=== PATIENT | female | born 1990 ===

== ENCOUNTER 2021-06-13 08:54 | Emergency (ER) | payer MEDICAID ==
--- NOTE | 2021-06-13 13:07 | Ultrasound Report ---
FIRSTTRIMESTER OBSTETRIC ULTRASOUND HISTORY: Vaginal bleeding during COMPARISON: None. TECHNIQUE: Routine transabdominal and transvaginal OB ultrasound performed. FINDINGS: Uterus: Mildly enlarged measuring 10.7 x 4.7 x 4.5 cm. 1 or 2 small uterine fibroids measuring up t o 1.5 cm are identified. Gestational Sac: Not seen Yolk Sac: Not seen Fetus/Embryo: Not seen Embryonic/ cardiac activity: Seen Endometrium: The endometrium measures 11 mm on transvaginal imaging and appears homogeneous. No hyper emia, fluid or obvious retained products. Ovaries: The right ovary is normal in size and appearance with normal blood flow, measuring 4.9 x 1. 1 x 5.6 cm. The left ovary is normal in size and appearance with normal blood flow, measuring 3.4 x 2.3 x 3.8 cm. No adnexal cyst or mass is identified. Additional findings: No pelvic fluid. IMPRESSION No intrauterine is demonstrated. The endometrium measures 11 mm and appears homogeneous. Th e ovaries are unremarkable. This may represent spontaneous . Please note that an ectopic preg citlali is not entirely excluded at this time. A very early nonvisualized could also be consi dered. Please correlate with the patient's clinical history and quantitative beta hCG levels. Signer Name: Abhijeet Esposito Jr, MD Signed: 06/13/2021 1:03 PM Workstation Name: [id number]
[2021-06-13 13:57] LABS: Hematocrit 40.9 % (30.3-42.9); Hemoglobin 13.2 gm/dl (10.1-14.3); Mean Corpuscular HGB Conc 32 % (30-34); Mean Corpuscular Volume 96 fl (79-97); Platelet Count 266 K/mm3 (140-440); Red Blood Count 4.27 M/mm3 (3.65-5.03); Red Cell Distribution Width 14.3 % (13.2-15.2)
[2021-06-13 14:17] LABS: Alanine Aminotransferase 7 units/L (7-56); Albumin 4.3 g/dL (3.9-5); Blood Urea Nitrogen 7 mg/dL (7-17); Calcium 9.5 mg/dL (8.4-10.2); Hemolysis Index 8
[2021-06-13 14:18] LABS: BUN/Creatinine Ratio 12
[2021-06-13 15:20] LABS: Calcium Phosphate Crystals,Ur 3+; Mucus,Urine FEW /HPF
[2021-06-13 15:39] LABS: RBC,Urine > 182.0 /HPF (0.0-6.0)
[2021-06-13 15:44] LABS: Color,Urine Yellow (Yellow)
[2021-06-13 15:45] LABS: Bilirubin,Urine Negative (Negative); Blood,Urine 3+ (Negative)
--- NOTE | 2021-06-13 15:51 | Emergency Department Report ---
ED Female HPI - General Chief complaint: Vaginal Bleeding Stated complaint: POSSIBLE MISCARRIAGE Time Seen by Provider: 06/13/21 11:29 Source: patient Mode of arrival: Ambulatory Limitations: No Limitations - History of Present Illness Initial comments: 30 yof who states that she is about 8- 10 weeks gestation with LMP She states that she noticed some vaginal spotting along with abdominal cramping. She denies dysuria, fever, and vaginal discharge. MD Complaint: vaginal bleeding -: Sudden Severity: mild Severity scale (0 -10): 3 Quality: cramping Consistency: constant Are you Now?: Yes Last Menstrual Period: 04/09/21 EDC: 01/14/22 Associated Symptoms: vaginal bleeding, abdominal pain. denies: vaginal discharge, nausea/vomiting, fever/chills, headaches, loss of appetite, dysuria, hematuria, rash, shortness of breath, syncope, weakness - Related Data Sexually active: Yes : 3 Para: 1 Allergies Allergy/AdvReac Type Severity Reaction Status Date / Time No Known Allergies Allergy Verified 06/13/21 09:01 ED Review of Systems ROS: Stated complaint: POSSIBLE MISCARRIAGE Other details as noted in HPI Comment: All other systems reviewed and negative Constitutional: denies: chills, diaphoresis, fever, malaise, weakness Eyes: denies: eye pain, eye discharge ENT: denies: ear pain, throat pain, congestion Respiratory: SOB at rest. denies: cough, orthopnea, shortness of breath, SOB with exertion Cardiovascular: denies: chest pain, palpitations, dyspnea on exertion, orthopnea, edema, syncope, paroxysmal nocturnal dyspnea Endocrine: no symptoms reported Gastrointestinal: abdominal pain. denies: nausea, vomiting, diarrhea, hematemesis, melena, hematochezia Genitourinary: denies: urgency, dysuria, frequency, hematuria, discharge Skin: denies: rash, lesions Neurological: denies: headache, weakness, numbness, paresthesias Psychiatric: denies: anxiety, depression Hematological/Lymphatic: denies: easy bleeding, easy bruising ED Past Medical Hx - Past Medical History Previous Medical History?: No - Surgical History Past Surgical History?: No ED Physical Exam - General Limitations: No Limitations General appearance: alert, in no apparent distress - Head Head exam: Present: atraumatic, normocephalic - Eye Eye exam: Present: normal appearance, conjunctival injection - Neck Neck exam: Present: normal inspection. Absent: tenderness, lymphadenopathy - Respiratory Respiratory exam: Present: normal lung sounds bilaterally. Absent: respiratory distress, wheezes, rhonchi, stridor, chest wall tenderness - Cardiovascular Cardiovascular Exam: Present: tachycardia, normal heart sounds - GI/Abdominal GI/Abdominal exam: Present: soft, normal bowel sounds. Absent: distended, tenderness, guarding, rebound, rigid - Extremities Exam Extremities exam: Present: normal inspection - Back Exam Back exam: Present: normal inspection. Absent: CVA tenderness (R), CVA tenderness (L), vertebral tenderness - Neurological Exam Neurological exam: Present: alert, oriented X3 - Psychiatric Psychiatric exam: Present: normal affect, normal mood - Skin Skin exam: Present: warm, dry, intact, normal color ED Course Vital Signs 06/13/21 06/13/21 09:02 16:01 Temperature 99.2 F Pulse Rate 115 H 86 Respiratory 16 18 Rate Blood Pressure 124/92 123/81 O2 Sat by Pulse 100 100 Oximetry ED Medical Decision Making - Lab Data Result diagrams: 06/13/21 13:20 06/13/21 13:20 - Radiology Data Radiology results: report reviewed OB US IMPRESSION No intrauterine is demonstrated. The endometrium measures 11 mm and appears homogeneous. The ovaries are unremarkable. This may represent spontaneous . Please note that an ectopic is not entirely excluded at this time. A very early nonvisualized could also be considered. Please correlate with the patient's clinical history and quantitative beta hCG levels. - Medical Decision Making 30 yof who states that she is about 8- 10 weeks gestation with LMP She states that she noticed some vaginal spotting along with abdominal cramping. She denies dysuria, fever, and vaginal discharge. Patient noted to have negative test and no IUP noted on US. UA negative for UTI. Patient was advised to that she could have possibly had a false positive test and this is a menstrual cycle given the low HCG level. She was advised to follow up with second officer for further evaluation. She verbalized understanding of and agreement with plan of care. Critical care attestation.: If time is entered above; I have spent that time in minutes in the direct care of this critically ill patient, excluding procedure time. ED Disposition Clinical Impression: Vaginal bleeding Disposition: HOME / SELF CARE / HOMELESS Is pt being admited?: No Does the pt Need Aspirin: No Condition: Stable Instructions: Miscarriage, [id number], Vaginal Bleeding During , First Trimester, [id number] Additional Instructions: Follow-up with [facility] for further evaluation. Referrals: VIANNEY FROST MD [Primary Care Provider] - 3-5 Days ZOE LEE MD [Referring] - 3-5 Days Time of Disposition: 15:50
[2021-06-13 17:22] VITALS: BP 123/81
== END 2021-06-13 16:03 | disposition home or self-care (01) ==
LOC: ED 08:54
DX: O20.9 Hemorrhage in early pregnancy, unspecified (principal); Z3A.08 8 weeks gestation of pregnancy
CPT/HCPCS: 36415; 76801; 76817; 80053; 81001; 84702; 85027; 85461; 86850; 86900; 86901; 87086; 99284